=== PATIENT | female | born 1930 | race Caucasian/White ===

== ENCOUNTER 2017-04-18 20:50 | Inpatient (IN) | payer OTHER ==
[~2017-04-18] VITALS: Ht 160 cm; Wt 74.5 kg
[~2017-04-18 20:50] MED LIST: ALLOPURINOL300 MG PO; AMLODIPINE BESYL5 MG PO; AZO95 MG PO; CYANOCOBALAM1000 MCG PO; DOXAZOSIN MESYLA4 MG PO; FENOFIBRATE160 M1 PO; FEOSOL325 MG PO; GLIMEPIRIDE1 MG PO; GLUCOPHAGE500 MG PO; KEFLEX500 MG PO; LEVOTHYROXINE100 MCG PO; LISINOPRIL10 MG PO; METOPROLOL TART50 MG PO; OXYCODONE HCL5 MG PO; PERCOCET 5/31 TABLET PO; PRILOSEC20 MG PO; TRAMADOL HCL50 MG PO; TYLENOL WITH C1 EACH PO; VITAMIN D34000 UNIT PO
[2017-04-18 22:22] VITALS: BP 148/65
[2017-04-18 23:15] VITALS: BP 148/68
[2017-04-19 02:41] VITALS: BP 142/96
[2017-04-19 05:24] LABS: EOSINOPHIL (%) 0 % (0-5); HEMATOCRIT 27.3 % (36.0-46.0); IMMATURE GRANULOCYTE (%) 1.1 % (0.0-0.7); IMMATURE GRANULOCYTE COUNT 0.1 K/uL; INSTRUMENT ABS NEUTROPHIL CT 7.8 K/uL; LYMPHOCYTE COUNT 0.6 K/uL (1.0-2.8); MCH 28.2 PG (29.0-34.0); MCHC 30.4 G/DL (30.0-36.0); MCV 92.9 FL (83-99); MEAN PLAT.VOLUME 11.3 uM^3 (9.5-12.4); MONOCYTE COUNT 0.4 K/uL (0-0.8); NEUTROPHIL (%) 88.5 % (45-76); NEUTROPHIL COUNT 7.8 K/uL (1.8-6.4); PLATELET COUNT 181 K/uL (156-360); RBC DIS.WIDTH-CV 15.5 % (11.8-14.6); RBC DIS.WIDTH-SD 52.2 % (39-53); RED BLOOD COUNT 2.94 M/uL (3.80-5.20); WHITE BLOOD COUNT 8.9 K/uL (4.1-10.2)
[2017-04-19 07:34] LABS: ANION GAP 14 MEQ/L (2-14); CHLORIDE 107 MEQ/L (99-109); GFR ESTIMATE (CALCULATED) > 59 mL/min/; GLUCOSE 180 mg/dL (70-99); POTASSIUM 4.3 MEQ/L (3.7-5.4); SAMPLE HEMOLYSIS CHECK 0; SAMPLE ICTERIC CHECK 0; SAMPLE LIPEMIA CHECK 0; SODIUM 140 MEQ/L (136-147); UREA NITROGEN (BUN) 15 mg/dL (9-23)
[2017-04-19 07:48] LABS: POINT-OF-CARE METER ID UU14174216; POINT-OF-CARE USER ID ENVKC36
[2017-04-19 07:53] VITALS: BP 126/58
[2017-04-19 11:36] LABS: POINT-OF-CARE METER ID UU13113698; POINT-OF-CARE USER ID ENVKC36
[2017-04-19 12:00] VITALS: BP 159/69
[2017-04-19 16:00] VITALS: BP 147/65
[2017-04-19 16:40] LABS: POINT-OF-CARE METER ID UU13113698; POINT-OF-CARE USER ID ENVKC36
[2017-04-19 19:00] VITALS: BP 148/76
[2017-04-19 21:09] LABS: POINT-OF-CARE METER ID UU13113781
[2017-04-20 02:02] VITALS: BP 126/74
[2017-04-20 04:17] VITALS: BP 126/74
[2017-04-20 07:56] LABS: POINT-OF-CARE METER ID UU13113781
[2017-04-20 11:20] LABS: POINT-OF-CARE METER ID UU13113781
[2017-04-20 12:06] VITALS: BP 163/77
[2017-04-20 14:23] LABS: POC NON-PRINT COM 1 ND
[2017-04-20 16:24] VITALS: BP 140/80
[2017-04-20 16:29] LABS: POINT-OF-CARE METER ID UU13113698
[2017-04-20 19:45] VITALS: BP 176/86
[2017-04-20 21:12] LABS: POINT-OF-CARE METER ID UU14174216
[2017-04-20 23:00] VITALS: BP 168/82
[2017-04-21 00:39] VITALS: BP 182/78
[2017-04-21 03:00] VITALS: BP 182/78
[2017-04-21 07:51] VITALS: BP 170/78
[2017-04-21 07:51] LABS: POINT-OF-CARE METER ID UU14174216
[2017-04-21] MEDS ORDERED: CEFDINIR300 MG PO (09:57)
[2017-04-21] MEDS ORDERED: XARELTO15 MG PO (09:59)
[2017-04-21] MEDS ORDERED: XARELTO20 MG PO (10:00)
[2017-04-21] MEDS ORDERED: NIFEDIPINE10 MG PO (10:00)
[2017-04-21] MEDS ORDERED: PREDNISONE10 MG PO (10:02)
[2017-04-21] MEDS ORDERED: TRAMADOL HCL50 MG PO (10:03)
[2017-04-21] MEDS ORDERED: TYLENOL WITH C1 EACH PO (10:03)
[2017-04-21 10:44] VITALS: BP 168/80
[2017-04-21 11:01] LABS: POINT-OF-CARE METER ID UU13113698
== END 2017-04-21 13:18 | DRG 300 ==
LOC: 4EAST 20:50 → ENRESERV 20:51 → 4EAST 22:12
PROVIDERS: Hospitalist
DX: I82.442 Acute embolism and thrombosis of left tibial vein (principal); N39.0 Urinary tract infection, site not specified; B96.20 Unspecified Escherichia coli [E. coli] as the cause of diseases classified elsewhere; D64.9 Anemia, unspecified; I10 Essential (primary) hypertension; E03.9 Hypothyroidism, unspecified; E11.9 Type 2 diabetes mellitus without complications; E78.5 Hyperlipidemia, unspecified; M10.9 Gout, unspecified; R79.1 Abnormal coagulation profile; Z66 Do not resuscitate; Z80.1 Family history of malignant neoplasm of trachea, bronchus and lung; Z82.49 Family history of ischemic heart disease and other diseases of the circulatory system; Z83.3 Family history of diabetes mellitus
CPT/HCPCS: 80048; 82272; 82948; 85025; 85027; 85730; 97530 GO; 97530 GP; J0696; J1815; J2920; J7030; J7050

== ENCOUNTER 2017-07-03 06:28 | Observation (INO) | payer OTHER ==
[~2017-07-03] VITALS: Ht 157.5 cm; Wt 73.6 kg
[~2017-07-03 06:28] MED LIST changes: +CEFDINIR300 MG PO; +NIFEDIPINE10 MG PO; +PREDNISONE10 MG PO; +XARELTO15 MG PO; +XARELTO20 MG PO
[2017-07-03 10:36] LABS: HEMATOCRIT 30.8 % (36.0-46.0); HEMOGLOBIN 9.7 G/DL (11.9-15.5); MCH 29.8 PG (29.0-34.0); MCHC 31.5 G/DL (30.0-36.0); MCV 94.8 FL (83-99); PLATELET COUNT 194 K/uL (156-360); RBC DIS.WIDTH-SD 52.8 % (39-53); RED BLOOD COUNT 3.25 M/uL (3.80-5.20); WHITE BLOOD COUNT 7.9 K/uL (4.1-10.2)
[2017-07-03 10:43] LABS: CHLORIDE 105 MEQ/L (99-109); POTASSIUM 3.4 MEQ/L (3.7-5.4); SODIUM 141 MEQ/L (136-147)
[2017-07-03 10:47] LABS: APPEARANCE SL.HAZY ((CLEAR)); BILIRUBIN NEGATIVE; BLOOD SMALL; COLOR YELLOW ((YELLOW)); GLUCOSE (STRIP) NEGATIVE; KETONES 20; LEUKOCYTES TRACE; NITRITE POSITIVE; PROTEIN (STRIP) 100; SPECIFIC GRAVITY 1.011 (1.000-1.030); UROBILINOGEN 0.2 MG/DL (0.2-1.0)
[2017-07-03 10:49] LABS: CREATININE 0.6 MG/DL (0.6-1.3); GFR ESTIMATE (CALCULATED) > 59 mL/min/; GLUCOSE 103 mg/dL (70-99); UREA NITROGEN (BUN) 13 mg/dL (9-23)
[2017-07-03 10:55] LABS: BACTERIA RARE /HPF; EPITHELIAL CELLS RARE /HPF; MUCUS TRACE /LPF; RED BLOOD CELLS 0-5 /HPF (0-5); WHITE BLOOD CELLS 0-5 /HPF (0-5)
[2017-07-03] MEDS ORDERED: COLCHICINE0.6 M1 PO (15:17)
[2017-07-03 16:39] VITALS: BP 194/75
[2017-07-03 17:08] VITALS: BP 183/77
[2017-07-03 20:46] VITALS: BP 186/86
[2017-07-04 00:52] VITALS: BP 148/62
[2017-07-04] MEDS ORDERED: CIPRO500 MG PO (13:16)
[2017-07-04] MEDS ORDERED: MEDROL DOSEPAK4 MG PO (13:16)
== END 2017-07-04 15:22 ==
LOC: EME 06:28 → 5WEST 14:34 → EDOF 14:34 → ENRESERV 14:42 → 5WEST 15:23 → EDOF 15:41 → ENRESERV 15:42 → 5WEST 15:50
PROVIDERS: Internal Medicine; Physician Assistant
DX: M10.9 Gout, unspecified (principal); N39.0 Urinary tract infection, site not specified; R26.2 Difficulty in walking, not elsewhere classified; I10 Essential (primary) hypertension; E78.5 Hyperlipidemia, unspecified; E03.9 Hypothyroidism, unspecified; E11.9 Type 2 diabetes mellitus without complications; D64.9 Anemia, unspecified; E87.6 Hypokalemia; Z86.718 Personal history of other venous thrombosis and embolism; Z79.01 Long term (current) use of anticoagulants; K21.9 Gastro-esophageal reflux disease without esophagitis; Z88.8 Allergy status to other drugs, medicaments and biological substances
CPT/HCPCS: 71046; 80048; 81003; 82948; 85027; 85379; 93971; 97530 GP; G0378; G8978 GP CM; G8979 GP CL; G8980 GP CK; G8987 GO CM; G8988 GO CJ; G8989 GO CK; J0696; J7030; J7512